=== PATIENT | male | born 1985 | race Caucasian/White ===

== ENCOUNTER 2021-08-12 10:50 | Emergency (ER) | payer MEDICAID ==
[~2021-08-12] VITALS: Ht 175.3 cm; Wt 86.4 kg
[2021-08-12] MEDS ORDERED: CETI-450 PO (11:57)
[2021-08-12 12:04] VITALS: BP 120/75
== END 2021-08-12 12:10 | disposition home or self-care (01) ==
LOC: EMS 10:52
DX: J30.9 Allergic rhinitis, unspecified (principal); R09.81 Nasal congestion
CPT/HCPCS: 99282; Z7502

== ENCOUNTER 2024-02-05 16:04 | Emergency (ER) | payer MEDICAID ==
[~2024-02-05] VITALS: Ht 175.3 cm; Wt 86.4 kg
[~2024-02-05 16:04] MED LIST: CETI-450 PO
[2024-02-05 16:13] VITALS: TEMP 98.3
[2024-02-05] MEDS: IBUPROFEN 600 MG TABLET PO ONE (18:33)
[2024-02-05 19:10] VITALS: BP 117/67; PULSE 82; RESP 18; O2SAT 99
[2024-02-05] MEDS: LIDOCAINE 5% TRANSDERMAL PATCH TD ONE (19:13)
== END 2024-02-05 19:43 | disposition home or self-care (01) ==
LOC: EMS 16:04
DX: M54.2 Cervicalgia (principal); V43.52XA Car driver injured in collision with other type car in traffic accident, initial encounter; Y93.89 Activity, other specified; Y92.410 Unspecified street and highway as the place of occurrence of the external cause; Y99.8 Other external cause status
CPT/HCPCS: 70450; 72125; 99284